=== PATIENT | female | born 1955 | race Caucasian/White ===

== ENCOUNTER → 2023-10-03 15:08 | Outpatient (REF) | payer MEDICARE, SELFPAY | LOC: RAD 15:08 | PROVIDERS: ATTENDING PHYSICIAN Nurse Practitioner | DX: R58 Hemorrhage, not elsewhere classified (principal); M25.462 Effusion, left knee; I82.812 Embolism and thrombosis of superficial veins of left lower extremity | CPT/HCPCS: 73564; 93971 ==

== ENCOUNTER → 2023-10-31 10:23 | Outpatient (REF) | payer MEDICARE, SELFPAY | LOC: DHCBS MAIN 10:23 | PROVIDERS: ATTENDING PHYSICIAN Internal Medicine Cardiovascular Disease; FAMILY PHYSICIAN Nurse Practitioner | DX: I51.7 Cardiomegaly (principal) | CPT/HCPCS: 93306 ==

== ENCOUNTER → 2023-12-12 10:46 | Outpatient (REF) | payer MEDICARE, MEDICAID, SELFPAY | LOC: RAD 10:46 | PROVIDERS: ATTENDING PHYSICIAN Nurse Practitioner | DX: Z00.00 Encounter for general adult medical examination without abnormal findings (principal); Z13.820 Encounter for screening for osteoporosis; M81.0 Age-related osteoporosis without current pathological fracture | CPT/HCPCS: 77080 ==

== ENCOUNTER → 2024-04-17 13:59 | Outpatient (REF) | payer MEDICARE, MEDICAID, SELFPAY | LOC: WDC 13:59 | PROVIDERS: ATTENDING PHYSICIAN Nurse Practitioner | DX: Z12.39 Encounter for other screening for malignant neoplasm of breast (principal) | CPT/HCPCS: 76641 ==

== ENCOUNTER → 2024-07-24 11:43 | Outpatient (REF) | payer OTHER, MEDICAID, SELFPAY | LOC: RAD 11:43 | PROVIDERS: ATTENDING PHYSICIAN Nurse Practitioner | DX: J10.1 Influenza due to other identified influenza virus with other respiratory manifestations (principal) | CPT/HCPCS: 71046 ==